=== PATIENT | female | born 1935 | race Caucasian/White ===

== ENCOUNTER → 2016-09-02 | Day surgery (SDC) | payer MEDICARE, OTHER ==
[~2016-09-02] MED LIST: ADVAIR 100-501 EAC1 IN; ADVAIR 250-501 EAC1 INH; ADVIL200 M1 PO; ALBUTEROL MININEB NEB; ALBUTEROL17 GM IN; ALEVE220 M1 PO; ALLEVE; ALPRAZOLAM PO; AMITIZA24 MCG; AMITRYPTYLINE PO; ASPIRIN81 M2 PO; AZITHROMYCIN250 MG PO; B COMPLEX1 CA1 PO; BAYER CHEWABLE81 MG PO; CITRATE OF MAG300 ML PO; ECOTRIN81 M1; EVISTA60 MG PO; HCTZ PO; HYDROCHLOROTH12.5 M1 PO; HYDROCODONE-HOMA5 M1 PO; HYDROCODONE/APA1 T15 PO; LIDODERM30 EA TOP; LINZESS145 MCG; LINZESS145 MCG PO; LORTAB; LORTAB 5/500 TA1 TA1 PO; LORTAB 7.5-5001 TAB PO; LOVENOX40 MG/0.4 INJ; MICROZIDE12.5 M1; MIRALAX17 GM PO; MULTI-VITAMIN1 TAB PO; NEURONTIN100 MG; PLENDIL PO; PLENDIL10 MG PO; PREDNISONE PO; PROVENTIL INH0.5 ML NEB; PROVENTIL17 GM IH; RISACAL-D TABL1 EACH PO; SENNA LAXATIVE25 MG PO; SENNOSIDES-DOC1 EACH PO; SOF-LAX100 MG PO; VITAMIN B12-FO1 EACH PO; VITAMIN D 4001 UDTAB PO; VITAMIN D2000 UNI1; VITAMIN D35000 UNIT PO; VOLTAREN75 MG PO; XANAX0.5 M1 PO
--- NOTE | ~2016-09-02 | OR ---
Unit #: [id number] #: [id number] Patient: PATIENCE JONES [id number] [address] [address] [id number] O MR#: [id number] NAME: PATIENCE JONES. ROOM: Date of Procedure: 09/02/2016 Admission Date: 09/02/2016 Surgeon: Se York M.D. : 1935 Attending Physician: Se York M.D. Primary Care Physician: Vianey Mckeon A.P.R.N. OPERATIVE REPORT PREOPERATIVE DIAGNOSES Back pain, radiculopathy, degenerative disk disease, spinal stenosis. POSTOPERATIVE DIAGNOSES Back pain, radiculopathy, degenerative disk disease, spinal stenosis. PROCEDURE PERFORMED Lumbar epidural steroid injection with fluoroscopic guidance for needle localization. INDICATIONS FOR PROCEDURE The patient is an 81-year-old female, who presented initially with back and bilateral lower extremity pain and symptoms consistent with spinal stenosis. She had a single epidural steroid injection, which resolved the right lower extremity pain, improved the back pain and did not help the left leg very much. Plan at this point, based on pathology, symptomatology, and treatment options, is to repeat an epidural steroid injection. She also seems to have some focal joint issues in her left knee that may be confusing her symptom complex. DESCRIPTION OF PROCEDURE The patient was placed in a seated position. Standard monitors were applied. Sterile prep and drape of the lumbar area was performed. The skin then at the L5-S1 level was localized with 1% lidocaine. An 18-gauge Hustead needle was then advanced via loss of resistance technique and fluoroscopic guidance in toward the epidural space. After confirming proper positioning with fluoroscopy and radiographic contrast, 80 mg of Depo-Medrol and 4 mL of 0.125% bupivacaine were deposited. The patient tolerated the procedure otherwise well and was discharged to the recovery room in stable condition. Dictated by... Martine Paz/luana TD: 09/03/2016 04:23 JOB #: [id number] Unit #: [id number] #: [id number] Patient: PATIENCE JONES OPERATIVE REPORT X Se York MD X PROCEDURE OPERATIVE NOTE
== END | disposition home or self-care (01) ==
LOC: CCSC 09:53
DX: M51.16 Intervertebral disc disorders with radiculopathy, lumbar region (principal); M48.06 Spinal stenosis, lumbar region
CPT/HCPCS: J1040; J2250

== ENCOUNTER → 2016-09-30 | Day surgery (SDC) | payer MEDICARE, OTHER ==
--- NOTE | ~2016-09-30 | OR ---
Unit #: [id number] #: [id number] Patient: PATIENCE JONES [id number] [address] [address] [id number] O MR#: [id number] NAME: PATIENCE JONES ROOM: Date of Procedure: 09/30/2016 Admission Date: 09/30/2016 Surgeon: Se York M.D. : 1935 Attending Physician: Se York M.D. Primary Care Physician: Vianey Mckeon A.P.R.N. OPERATIVE REPORT PREOPERATIVE DIAGNOSES 1. Spinal stenosis. 2. Degenerative disk disease. 3. Radiculopathy. POSTOPERATIVE DIAGNOSES 1. Spinal stenosis. 2. Degenerative disk disease. 3. Radiculopathy. PROCEDURE PERFORMED Lumbar epidural steroid injection with fluoroscopic guidance for needle localization. INDICATIONS FOR PROCEDURE The patient is an 81-year-old female, initially presented with back and bilateral lower extremity pain. She was treated with a single epidural steroid injection in 02/2016. This resulted in near resolution of right leg pain, moderate improvement in the back pain. She still had left lower extremity pain. She also has some osteoarthritis in that knee appears to be septic from her left leg complaints. Repeat injection further helped low back pain, but did not address left leg pain very much. We are going to proceed with a final injection at a different blasting entry specialist to see if that has any benefit of the leg pain. She does give some complaints consistent with neuropathy and then maybe she has been medically treated on the left instead. Her pathology at this time is noted to be severe, I would expect her to do well if this left leg pain is indeed radicular primarily in nature. The patient will follow up with her primary caregiver. DESCRIPTION OF PROCEDURE The patient was placed in a seated position. Standard monitors were applied. Sterile prep and drape of the lumbar area was performed. The skin at the L4-L5 level was localized with 1% lidocaine. An 18-gauge Calvin needle was then advanced via loss of resistance technique and fluoroscopic guidance in toward the epidural space. After confirming proper positioning with fluoroscopy and radiographic contrast, 80 mg of Depo-Medrol and 4 mL of 0.125% bupivacaine were deposited. The patient tolerated the procedure otherwise well and was discharged to the recovery room in stable condition. Unit #: [id number] #: [id number] Patient: PATIENCE JONES Dictated by... Martine Paz/lunaa TD: 10/01/2016 02:52 JOB #: [id number] OPERATIVE REPORT Page 1 of 1 X Se York MD X PROCEDURE OPERATIVE NOTE
== END | disposition home or self-care (01) ==
LOC: CCSC 10:27
DX: M48.06 Spinal stenosis, lumbar region (principal); M51.16 Intervertebral disc disorders with radiculopathy, lumbar region
CPT/HCPCS: J1040; J2250